=== PATIENT | female | born 1935 | race Caucasian/White ===

== ENCOUNTER 2021-08-20 08:10 | Inpatient (IN) | payer MEDICARE, OTHER ==
[~2021-08-20] VITALS: Ht 157.5 cm; Wt 88.5 kg
[~2021-08-20 08:10] MED LIST: ACET325 PO; ASCO1ER PO; ASPI81CH PO; ASPI81EC PO; CALCAVITDA PO; COMPLEX B-1000.4 MG PO; DIPH50 PO; FISH OIL 1200MG PO; FISH1000 PO; GLUC500 PO; IBUP800 PO; LEVSOD100 PO; LEVSOD50 PO; MECL12.5 PO; MECL25 PO; MULVITB PO; NAPR220 PO; ONDA4 PO; PYRI100 PO; RED YEAST RICE PO; RED YEAST RICE600 MG PO; TOCO400 PO; VITAMIN B PO
[2021-08-20 09:13] LABS: BASOPHILS ABSOLUTE AUTO 0.05 K/mm3 (0.00-0.23); BASOPHILS PERCENT AUTO 1 % (0-2); EOSINOPHILS ABSOLUTE AUTO 0.15 K/mm3 (0.00-0.68); EOSINOPHILS PERCENT AUTO 2 % (0-6); Hematocrit 43.1 % (33.0-51.0); Hemoglobin 14.1 g/dL (11.5-16.0); IMMATURE GRAN ABSOLUTE AUTO 0.01 K/mm3 (0.00-0.10); IMMATURE GRAN PERCENT AUTO 0 % (0-1); LYMPHOCYTES ABSOLUTE AUTO 2.48 K/mm3 (0.84-5.20); LYMPHOCYTES PERCENT AUTO 37 % (21-46); MONOCYTES ABSOLUTE AUTO 0.74 K/mm3 (0.16-1.47); MONOCYTES PERCENT AUTO 11 % (4-13); Mean Corpuscular HGB 31.3 pg (26.0-34.0); Mean Corpuscular HGB Conc 32.7 g/dL (31.5-36.5); Mean Corpuscular Volume 96 fL (80-100); Mean Platelet Volume 11.2 fL (9.1-12.4); NEUTROPHILS ABSOLUTE AUTO 3.21 K/mm3 (1.96-9.15); NEUTROPHILS PERCENT AUTO 48 % (41-73); Platelet Count 176 K/mm3 (150-400); RDW Coefficient Variation 12.2 % (11.7-14.2); RDW Standard Deviation 43.2 fL (35.1-46.3); White Blood Cell Count 6.64 K/mm3 (4.00-11.30)
[2021-08-20 09:32] LABS: Bun/Creatinine Ratio 17.2 (12.0-20.0); Calcium, Blood 8.7 mg/dL (8.5-10.1); Creatinine, Blood 0.82 mg/dL (0.40-1.00); Potassium, Blood 4.3 mmol/L (3.5-5.5)
[2021-08-20] MEDS ORDERED: LISI5 PO (09:34)
[2021-08-20] MEDS ORDERED: METO25ER PO (09:34)
[2021-08-20] MEDS ORDERED: TURMERIC ROOT5000 GM MC (09:34)
[2021-08-20] MEDS ORDERED: CENTRUM SILVER1 EAC2 PO (09:34)
[2021-08-20] MEDS ORDERED: Estrace Vagin42.5 GM PV (09:35)
[2021-08-20 10:05] LABS: Prothrombin Time Results 10.5 Sec (9.7-11.5)
--- NOTE | 2021-08-20 13:07 | NUR ---
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 PT IS A&OX4 AT THIS TIME. TELEMETRY, BP AND SP02 MONITORING IN PLACE. WILL CONTINUE TO MONITOR PT UNTIL SHE CAN BE TAKEN BACK TO SOL[employer] FI[employer] SERVICE TECHNICIAN FOR PACEMAKER PLACEMENT LATER TODAY. ORIENTED TO ROOM/CALL LIGHT, PT VERBALIZES UNDERSTANDING.
--- NOTE | 2021-08-20 18:15 | NUR ---
PT RETURNED FROM SCHEDULE MAKER APROX 1700 POST PACEMAKER PLACEMENT. SITE TO L CHEST WNL. ICE PACK APPLIED AND PACEMAKER PRECAUTIONS REVIEWED WITH PT, SHE VERBALIZES UNDERSTANDING. SLING IN PLACE. PT INSTRUCTED TO CALL RN FOR PAIN MEDICATION IF NEEDED. SEE DOCUMENTED VS. PT IS A&OX4 ON ARRIVAL BACK TO ROOM, FAMILY AT BEDSIDE. PT HAS NO NEEDS AT THIS TIME, OCCASIONALLY A PACED ON TELEMETRY. CALL LIGHT IN REACH. WILL CONTINUE TO MONITOR AND GIVE REPORT TO NOC SHIFT RN.
--- NOTE | 2021-08-21 02:40 | NUR ---
PPM site WNL, some minor swelling and bruising, VSS, pain managed with current regimine, will continue to monitor
[2021-08-21 03:39] LABS: Mean Corpuscular HGB 31.3 pg (26.0-34.0); Mean Corpuscular HGB Conc 32.5 g/dL (31.5-36.5); Mean Corpuscular Volume 96 fL (80-100); Mean Platelet Volume 11.4 fL (9.1-12.4); Platelet Count 150 K/mm3 (150-400); RDW Coefficient Variation 12.3 % (11.7-14.2); RDW Standard Deviation 43.7 fL (35.1-46.3); Red Blood Cell Count 4.15 M/mm3 (3.80-5.20)
[2021-08-21 03:58] LABS: Albumin, Blood 3.2 g/dL (3.4-5.0); Anion Gap 6 mmol/L (6-16); Blood Urea Nitrogen 16 mg/dL (8-24); Bun/Creatinine Ratio 19.3 (12.0-20.0); CO2, Blood 25 mmol/L (21-32); Calcium, Blood 8.5 mg/dL (8.5-10.1); Chloride, Blood 106 mmol/L (98-108); Creatinine, Blood 0.83 mg/dL (0.40-1.00); Glomerular Filtration Rate 69 (60-); Glucose, Blood 104 mg/dL (70-99); Magnesium, Blood 2.1 mg/dL (1.6-2.4); Phosphorus, Blood 4.2 mg/dL (2.5-4.9); Potassium, Blood 4.6 mmol/L (3.5-5.5); Sodium, Blood 137 mmol/L (136-145)
--- NOTE | 2021-08-21 10:42 | NUR ---
PT DISCHARGED HOME WITH FAMILY, ALL BELONGINGS SENT WITH PT. DISCHARGE EDUCATION REVIEWED WITH PT AND HER FAMILY AT BEDSIDE INCLUDING PACEMAKER PRECAUTIONS, FOLLOW UP APPOINTMENTS, DISCHARGE TEACHING AND MEDICATION LIST. PT VERBALIZES UNDERSTANDING AND DOES NOT HAVE ANY QUESTIONS AT THIS TIME. NO FURTHER DISCHARGE NEEDS IDENTIFIED.
== END 2021-08-21 10:38 | disposition home or self-care (01) | DRG 244 ==
LOC: ER 08:10 → MEDS 10:56 → PCU 11:34
PROVIDERS: Emergency Medicine; Internal Medicine Cardiovascular Disease; ADMIT Family Medicine
PROC: 0JH606Z Insertion of Pacemaker, Dual Chamber into Chest Subcutaneous Tissue and Fascia, Open Approach (ICD-10-PCS; principal; 2021-08-20)
PROC: 02HK3JZ Insertion of Pacemaker Lead into Right Ventricle, Percutaneous Approach (ICD-10-PCS; 2021-08-20)
PROC: 02H63JZ Insertion of Pacemaker Lead into Right Atrium, Percutaneous Approach (ICD-10-PCS; 2021-08-20)
DX: I44.1 Atrioventricular block, second degree (principal); I49.5 Sick sinus syndrome; I10 Essential (primary) hypertension; E78.5 Hyperlipidemia, unspecified; M85.80 Other specified disorders of bone density and structure, unspecified site; E03.9 Hypothyroidism, unspecified; M19.90 Unspecified osteoarthritis, unspecified site; Z96.641 Presence of right artificial hip joint; Z98.42 Cataract extraction status, left eye; Z90.89 Acquired absence of other organs; Z90.710 Acquired absence of both cervix and uterus; Z87.891 Personal history of nicotine dependence; Z88.0 Allergy status to penicillin; Z88.1 Allergy status to other antibiotic agents; Z88.2 Allergy status to sulfonamides; Z88.8 Allergy status to other drugs, medicaments and biological substances; Z79.82 Long term (current) use of aspirin; Z79.899 Other long term (current) drug therapy
CPT/HCPCS: 33208; 36415; 71045; 71046; 80048; 80069; 83735; 85025; 85027; 85610; 85730; 93005; 93010; 93306; 99152; 99153; 99285-25; A9270; C1785; C1898; J1644; J2250; J3010; J3370; J7030; J7040; J7060

== ENCOUNTER → 2023-12-06 | Outpatient (CLI) | payer MEDICARE, OTHER ==
[~2023-12-06] MED LIST changes: +CENTRUM SILVER1 EAC2 PO; +Estrace Vagin42.5 GM PV; +LISI5 PO; +METO25ER PO; +TURMERIC ROOT5000 GM MC
[2023-12-06 14:23] LABS: Source, Urine Clean Catch
[2023-12-06 14:24] LABS: Red Blood Cells, Urine 0-2 /hpf (0-2); Squamous Epithelial Cells Mod /hpf (Few); White Blood Cells, Urine 0-2 /hpf (0-5)
[2023-12-06 14:25] LABS: Bacteria Not Seen /hpf
== END | disposition home or self-care (01) ==
LOC: LAB 14:21 → LAB SHORT 14:21
PROVIDERS: Family Medicine
DX: R39.15 Urgency of urination (principal)
CPT/HCPCS: 81015; 87077; 87086; 87186

== ENCOUNTER → 2023-12-25 | Outpatient (CLI) | payer MEDICARE, OTHER | LOC: LAB 13:24 → LAB SHORT 13:24 | DX: L82.0 Inflamed seborrheic keratosis (principal); L57.0 Actinic keratosis | CPT/HCPCS: 88305 ==

== ENCOUNTER 2024-04-29 | Day surgery (SDC) | payer MEDICARE, OTHER ==
[2024-04-29] MEDS ORDERED: Lidocaine HCl 4% Cream 5 GM ONE (14:43)
[2024-04-29] MEDS ORDERED: Mupirocin Calcium Oint 1 GM ONE (15:32)
== END 2024-04-29 23:00 | disposition home or self-care (01) ==
LOC: WOUND
DX: T20.26XA Burn of second degree of forehead and cheek, initial encounter (principal); I10 Essential (primary) hypertension; Z87.891 Personal history of nicotine dependence; Z95.0 Presence of cardiac pacemaker; Z88.0 Allergy status to penicillin
CPT/HCPCS: A9270; G0463

== ENCOUNTER 2024-05-05 06:39 | Day surgery (SDC) | payer MEDICARE, OTHER ==
[2024-05-05] MEDS ORDERED: Bacitracin Zinc Oint 1GRAM UD Packet ONE (15:00)
== END 2024-05-05 23:00 | disposition home or self-care (01) ==
LOC: WOUND 06:39
DX: T20.20XD Burn of second degree of head, face, and neck, unspecified site, subsequent encounter (principal); I10 Essential (primary) hypertension; Z95.0 Presence of cardiac pacemaker
CPT/HCPCS: G0463

== ENCOUNTER 2024-05-12 01:24 | Day surgery (SDC) | payer MEDICARE, OTHER | END 2024-05-12 23:00 | disposition home or self-care (01) | LOC: WOUND 01:24 | DX: T20.29XD Burn of second degree of multiple sites of head, face, and neck, subsequent encounter (principal); I10 Essential (primary) hypertension; Z95.0 Presence of cardiac pacemaker | CPT/HCPCS: G0463 ==

== ENCOUNTER 2024-12-29 10:08 | Inpatient (IN) | payer MEDICARE, OTHER ==
[~2024-12-29] VITALS: Ht 154.9 cm; Wt 90.3 kg
[~2024-12-29 10:08] MED LIST changes: -ACET325 PO; +ACET500 PO; +BENADRYL25 MG PO; +CALCIUM 500 MG1 EAC2 PO; -DIPH50 PO; -Estrace Vagin42.5 GM PV; +Estrace Vagin42.5 GM VAG; -TURMERIC ROOT5000 GM MC; +TURMERIC500 M2 PO; -VITAMIN B PO; +VITAMIN B-122000 MC1 PO
[2024-12-29 10:58] LABS: BASOPHILS ABSOLUTE AUTO 0.07 K/mm3 (0.00-0.23); BASOPHILS PERCENT AUTO 1 % (0-2); EOSINOPHILS ABSOLUTE AUTO 0.27 K/mm3 (0.00-0.68); EOSINOPHILS PERCENT AUTO 3 % (0-6); Hematocrit 44.7 % (33.0-51.0); Hemoglobin 15.0 g/dL (11.5-16.0); IMMATURE GRAN ABSOLUTE AUTO 0.02 K/mm3 (0.00-0.10); IMMATURE GRAN PERCENT AUTO 0 % (0-1); LYMPHOCYTES ABSOLUTE AUTO 2.48 K/mm3 (0.84-5.20); LYMPHOCYTES PERCENT AUTO 27 % (21-46); MONOCYTES ABSOLUTE AUTO 0.84 K/mm3 (0.16-1.47); MONOCYTES PERCENT AUTO 9 % (4-13); Mean Corpuscular HGB Conc 33.6 g/dL (31.5-36.5); Mean Corpuscular Volume 94 fL (80-100); NEUTROPHILS ABSOLUTE AUTO 5.49 K/mm3 (1.96-9.15); NEUTROPHILS PERCENT AUTO 60 % (41-73); NRBC ABSOLUTE 0.00 K/mm3 (0.00-0.02); NRBC Auto 0.0 /100 WBC (0.0-0.2); Platelet Count 241 K/mm3 (150-400); RDW Coefficient Variation 13.0 % (11.7-14.2); RDW Standard Deviation 44.9 fL (35.1-46.3)
[2024-12-29 11:15] LABS: Prothrombin Time Results 11.8 Sec (9.7-11.5)
[2024-12-29 11:25] LABS: Alanine Aminotransfer (ALT/SGP 20.0 U/L (12-78); Albumin, Blood 3.4 g/dL (3.4-5.0); Albumin/Globulin Ratio 0.8 (0.8-1.8); Anion Gap 8.0 mmol/L (3-11); Aspartate Aminotrans (AST/SGOT 23.0 U/L (12-37); Bilirubin, Total 0.5 mg/dL (0.1-1.0); Blood Urea Nitrogen 17.0 mg/dL (8-24); CO2, Blood 27.0 mmol/L (21-32); Calcium, Blood 9.2 mg/dL (8.5-10.1); Chloride, Blood 104.0 mmol/L (98-108); Creatinine, Blood 0.8 mg/dL (0.40-1.00); Globulin, Blood 4.2 g/dL (2.2-4.0); Glucose, Blood 122.0 mg/dL (70-99); Magnesium, Blood 2.0 mg/dL (1.6-2.4); Potassium, Blood 3.9 mmol/L (3.5-5.5); Sodium, Blood 135.0 mmol/L (136-145); Total Protein, Blood 7.6 g/dL (6.4-8.2)
[2024-12-29] MEDS ORDERED: FLU VACC TS2025(65UP)/MF59C/PF 45 MCG/0.5 ML SYRINGE IM SCH (13:40)
[2024-12-29 16:29] VITALS: BP 147/88
[2024-12-29 17:05] LABS: Automated BF WBC Count 1.062 K/mm3 (0-999)
[2024-12-29] MEDS ORDERED: Amlodipine Bes2.5 MG PO (17:08)
[2024-12-29] MEDS ORDERED: FURO20 PO (17:11)
[2024-12-29] MEDS ORDERED: POTA10T PO (17:12)
[2024-12-29 17:19] LABS: Albumin, Body Fluid 3.3 g/dL; Glucose, Body Fluid 111 mg/dL; Lactate Dehydrogenase, Body Fl 192 U/L
[2024-12-29 17:22] LABS: RBC Count, Body Fluid 695 /mm3 (0-0)
[2024-12-29 17:23] LABS: Color, Body Fluid Yellow (None-Yellow)
[2024-12-29 17:46] LABS: Anti-Xa UFH, PHA Monitoring <0.10 IU/mL
--- NOTE | 2024-12-29 17:47 | NUR ---
PT ADMITTED TO UNIT AFTER THORACENTESIS COMPLETED. PT ABLE TO STAND AND AMBULATE WITH SBA FROM GURNEY TO BED. PT DENIES PAIN, REPORTS BREATHING BETTER POST THORACENTESIS. REMAINS ON 2 L/MIN VIA NC AND SATING 95%. ADMISSION COMPLETED INCLUDING MED REC. TELE MONITOR PLACED ON PT - SR @ 88, PACEMAKER. PT ORIENTED TO ROOM AND CALL SYSTEM AND NEED TO CALL PRIOR TO GETTING OOB. PT HAS CANE x2 AND BILATERAL HEARING AIDS. PROVIDER NOTIFIED OF FLUID REMOVED DURING THORACENTESIS. PT CURRENTLY RESTING IN BED WITH BED IN LOWEST POSITION AND CALL LIGHT WITHIN REACH. PT APPEARS COMFORTABLE AND IN NO DISTRESS. PT DENIES ANY NEEDS AT THIS TIME.
[2024-12-29] MEDS ORDERED: Heparin Sodium,Porcine/0.5 NS 500 ML IV SCH (17:50)
[2024-12-29] MEDS ORDERED: Heparin Sodium 5000 Units/ML 1ML MDV IV ONE (17:50)
[2024-12-29 18:09] LABS: Lymphocytes, Fluid 69.0 % (0.0-18.0); Monocytes/Mononuclear, Fluid 23.0 % (0.0-50.0); Neutrophils, Fluid 4.0 % (0.0-25.0); Other Cells, Fluid 2.0 % (0.0-0.0); Total Cell Count, Body Fluid 100
[2024-12-29 19:35] VITALS: BP 121/57
[2024-12-30 01:13] LABS: BASOPHILS ABSOLUTE AUTO 0.04 K/mm3 (0.00-0.23); BASOPHILS PERCENT AUTO 0 % (0-2); EOSINOPHILS ABSOLUTE AUTO 0.15 K/mm3 (0.00-0.68); EOSINOPHILS PERCENT AUTO 1 % (0-6); Hematocrit 41.9 % (33.0-51.0); Hemoglobin 14.1 g/dL (11.5-16.0); IMMATURE GRAN ABSOLUTE AUTO 0.04 K/mm3 (0.00-0.10); IMMATURE GRAN PERCENT AUTO 0 % (0-1); LYMPHOCYTES ABSOLUTE AUTO 1.67 K/mm3 (0.84-5.20); LYMPHOCYTES PERCENT AUTO 15 % (21-46); MONOCYTES ABSOLUTE AUTO 0.90 K/mm3 (0.16-1.47); MONOCYTES PERCENT AUTO 8 % (4-13); Mean Corpuscular HGB Conc 33.7 g/dL (31.5-36.5); Mean Corpuscular Volume 94 fL (80-100); NEUTROPHILS ABSOLUTE AUTO 8.29 K/mm3 (1.96-9.15); NEUTROPHILS PERCENT AUTO 75 % (41-73); NRBC ABSOLUTE 0.00 K/mm3 (0.00-0.02); NRBC Auto 0.0 /100 WBC (0.0-0.2); Platelet Count 219 K/mm3 (150-400); RDW Coefficient Variation 12.8 % (11.7-14.2); RDW Standard Deviation 44.3 fL (35.1-46.3)
[2024-12-30 01:29] LABS: Anion Gap 7.0 mmol/L (3-11); Blood Urea Nitrogen 17.0 mg/dL (8-24); CO2, Blood 27.0 mmol/L (21-32); Calcium, Blood 8.9 mg/dL (8.5-10.1); Chloride, Blood 105.0 mmol/L (98-108); Creatinine, Blood 0.72 mg/dL (0.40-1.00); Glucose, Blood 148.0 mg/dL (70-99); Potassium, Blood 4.1 mmol/L (3.5-5.5); Sodium, Blood 135.0 mmol/L (136-145)
[2024-12-30] MEDS ORDERED: Dose Adjust by Pharmacy XX STA ×3 (01:35→15:33)
--- NOTE | 2024-12-30 01:45 | NUR ---
HEPARIN DRIP HELD X 1 HR AND TO START BACK AT 15 U/KG IN 1 HR, INSTRUCTED BY PHARMACY.
[2024-12-30 04:47] VITALS: BP 138/63
[2024-12-30 07:52] VITALS: BP 130/74
[2024-12-30] MEDS ORDERED: TYLENOL ER PO (11:47)
[2024-12-30] MEDS ORDERED: ASCO500 PO (11:50)
[2024-12-30 15:49] VITALS: BP 121/53
--- NOTE | 2024-12-30 16:36 | NUR ---
SHIFT SUMMARY NO ACUTE CHANGES. A/Ox4, ABLE TO MAKE NEEDS KNOWN. ON RA AND SATING ABOVE 92%. PT DENIES PAIN TO THORACENTESIS SITE AND REPORTS DEEP BREATHS ARE BECOMING LESS PAINFUL. MEDICATED PER EMAR FOR PAIN TO R SHOULDER. REMAINS ON HEPARIN AT 19.5 ML/HR PER PHARMACY MANAGEMENT. PT CURRENTLY SITTING UP IN CHAIR, WITH CALL LIGHT IN REACH. PT APPEARS COMFORTABLE AND DENIES ANY NEEDS AT THIS TIME. ONCOLOGY CONSULT CALLED IN BY THIS RN.
[2024-12-30 19:39] VITALS: BP 131/43
[2024-12-30 23:29] VITALS: BP 142/75
[2024-12-31 02:55] VITALS: BP 137/63
--- NOTE | 2024-12-31 03:19 | NUR ---
TAX COMPLIANCE AGENT SUMMARY VSS. ALERT AND ORIENTED. RESPS EVEN, LUNG SOUNDS DIMINISHED ON LEFT SIDE PER AUSCULTATION BUT SATS IN THE 90'S. TELE - PACED IN THE 90'S. HEPARIN DRIP CONTINUES AT 15 U/KG PER HR. HAS BEEN RESTING QUIETLY WITH FEW INTERRUPTIONS. UP TO BATHROOM WITH ASSIST USING 2 CANES TO VOID. THEN UP TO BEDSIDE RECLINER. AFFECT CHEERFUL. CURRENTLY RESTING QUIETLY IN RECLINER. CALL LIGHT IN REACH. FEET UP. WILL CONTINUE TO MONITOR.
[2024-12-31 05:59] LABS: BASOPHILS ABSOLUTE AUTO 0.03 K/mm3 (0.00-0.23); BASOPHILS PERCENT AUTO 0 % (0-2); EOSINOPHILS ABSOLUTE AUTO 0.46 K/mm3 (0.00-0.68); EOSINOPHILS PERCENT AUTO 5 % (0-6); Hematocrit 42.5 % (33.0-51.0); Hemoglobin 14.2 g/dL (11.5-16.0); IMMATURE GRAN ABSOLUTE AUTO 0.03 K/mm3 (0.00-0.10); IMMATURE GRAN PERCENT AUTO 0 % (0-1); LYMPHOCYTES ABSOLUTE AUTO 1.75 K/mm3 (0.84-5.20); LYMPHOCYTES PERCENT AUTO 20 % (21-46); MONOCYTES ABSOLUTE AUTO 0.91 K/mm3 (0.16-1.47); MONOCYTES PERCENT AUTO 11 % (4-13); Mean Corpuscular HGB Conc 33.4 g/dL (31.5-36.5); Mean Corpuscular Volume 95 fL (80-100); NEUTROPHILS ABSOLUTE AUTO 5.52 K/mm3 (1.96-9.15); NEUTROPHILS PERCENT AUTO 64 % (41-73); NRBC ABSOLUTE 0.00 K/mm3 (0.00-0.02); NRBC Auto 0.0 /100 WBC (0.0-0.2); Platelet Count 240 K/mm3 (150-400); RDW Coefficient Variation 13.0 % (11.7-14.2); RDW Standard Deviation 45.9 fL (35.1-46.3)
[2024-12-31 06:22] LABS: Anion Gap 11.0 mmol/L (3-11); Blood Urea Nitrogen 13.0 mg/dL (8-24); CO2, Blood 24.0 mmol/L (21-32); Calcium, Blood 8.9 mg/dL (8.5-10.1); Chloride, Blood 103.0 mmol/L (98-108); Creatinine, Blood 0.71 mg/dL (0.40-1.00); Glucose, Blood 108.0 mg/dL (70-99); Potassium, Blood 3.6 mmol/L (3.5-5.5); Sodium, Blood 134.0 mmol/L (136-145)
[2024-12-31] MEDS ORDERED: Dose Adjust by Pharmacy XX STA (06:23)
[2024-12-31 08:13] VITALS: BP 147/64
--- NOTE | 2024-12-31 09:32 | NUR ---
Dr. Griffin in to see patient this morning. Verbal order to hold IV Heparin given and completed at 0914. Notified pharmacy of Dr. stiles at 0916.
[2024-12-31 11:25] VITALS: BP 139/69
[2024-12-31 15:47] VITALS: BP 133/72
--- NOTE | 2024-12-31 15:57 | NUR ---
PROVIDER UPDATED ME THAT PATIENT HAS DECIDED ON GOING HOME ON HOSPICE. UPDATED CARE COORDINATION WHO WAS ABLE TO VERIFY AND MAKE ARRANGMENTS
--- NOTE | 2024-12-31 17:13 | NUR ---
1302: Call to Dr. Garcia, pulmonology, regarding patient wishes to go home on hospice and have pleurex drain placement. Cancelled thoracentisis today. 1403: Call to Dr. Dawson, General Surgery, with consult request from Dr. Quinones for Pleurx drain placement. He stated that Dr. Sweet will see patient tomorrow morning. 1413: Call to Pharmacy and heparin drip restarted, per Dr. Quinones, at 1417.
--- NOTE | 2024-12-31 17:22 | NUR ---
End of shift summary: Patient is alert and oriented x4; pleasant and cooperative with care. Patient with no acute changes this shift. Denied CP or pressure, N/V/D today, but did have right shoulder pain and SOB with exertion; utilizing oxygen PRN and Acetameniphen. All medications administered per EMAR. Patient to be NPO after midnight for surgery tomorrow. Patient utilizing call light appropriately; call light within reach and chair locked for safety. Will continue to monitor until next shift nurse arrives and report is given.
[2024-12-31 19:44] VITALS: BP 134/74
[2024-12-31 23:49] VITALS: BP 122/69
[2025-01-01] VITALS (16 sets, daily range): BP systolic 108–174; BP diastolic 60–107
--- NOTE | 2025-01-01 03:01 | NUR ---
SHIFT SUMMARY: AOX4. PT AMBULATES WITH SBA AND HER 2 CANES. VSS AND ON RA. DENIES PAIN OR SOB. LUNGS ARE DIMINISHED THROUGHOUT. CALL LIGHT IS WITHIN REACH. PT IS ASLEEP IN CHAIR. PT IS NPO, PENDING PLEURX PLACEMENT.
[2025-01-01] MEDS ORDERED: Bupivacaine 0.5% HCl 5 MG/ML 30MLVIAL ONE (13:49)
[2025-01-01] MEDS ORDERED: CeFAZolin Sodium 2,000 MG in NS 100 ML IV SCH (14:00)
[2025-01-01] MEDS ORDERED: FentaNYL Citrate 50 MCG/ML 2 ML Injection ONE ×2 (14:06→15:04)
--- NOTE | 2025-01-01 14:11 | NUR ---
PT TRASNPORTED TO [facility]. AGREES WITH PLANNED SURGERY. History, Chart, Medications and Allergies reviewed before start of procedure. Patient confirms NPO status and agrees with scheduled surgery. HEPARIN DRIP STOPPED AT 1000, DR. KITCHEN AWARE AND STATES OK TO PROCEED WITH SURGERY. HEARING AIDS LEFT IN EARS.
--- NOTE | 2025-01-01 14:30 | NUR ---
01/01/25 1429 Judith Webster AT 1425 DR. KITCHEN INJECTED 20ML 2% LIDOCAINE WITH 0.5% MARCAINE 1:1 RATIO
[2025-01-01] MEDS ORDERED: Ondansetron HCl 2 MG / ML 2ML Vial IV PRN (14:35)
[2025-01-01] MEDS ORDERED: FentaNYL Citrate 50 MCG/ML 2 ML Injection IV PRN ×3 (14:35)
--- NOTE | 2025-01-01 18:25 | NUR ---
PATIENT RESTING POST PROCEDURE. WISHES TO STAY ONE MORE NIGHT BEFORE DISCHARE HOME TOMORROW. PATIENT DENIES PAIN AT THIS TIME. INDEPENDENT IN ROOM.
[2025-01-02] MEDS ORDERED: Clarify Drug Order XX ONE (03:35)
[2025-01-02 03:47] VITALS: BP 137/68
--- NOTE | 2025-01-02 04:13 | NUR ---
NO ACUTE CHANGES DURING SHIFT. PATIENT ALERT AND ORIENTED X4, ABLE TO MAKE NEEDS KNOWN. PATIENT IS A 1 ASSIST WITH HER CANE TO THE BATHROOM. PATIENT AMBULATED IN ROOM. PATIENT HEPARIN DRIP WAS RESTARTED PER MD ORDER. PATIENT C/O PAIN WITHOUT RELIEF FROM TYLENOL. ORDER FOR OXYCODONE WAS OBTAINED. PATIENT ON TELE-RUNNING NSR. WHEELS ARE LOCKED AND BED IN LOW POSITION. CALL LIGHT WITHIN REACH.
[2025-01-02 05:01] LABS: Hematocrit 43.9 % (33.0-51.0); Hemoglobin 14.5 g/dL (11.5-16.0); Platelet Count 231 K/mm3 (150-400)
[2025-01-02 06:11] VITALS: BP 113/66
--- NOTE | 2025-01-02 06:38 | NUR ---
0335- PER PHARMACY ORDER-CONTINUED HEPARIN AT SAME RATE- 15 U/KG/HR OR 19.5 ML
[2025-01-02 07:19] VITALS: BP 128/71
[2025-01-02] MEDS ORDERED: Dose Adjust by Pharmacy XX STA (09:20)
[2025-01-02] MEDS ORDERED: MASOPHEN325 M3 PO (11:03)
[2025-01-02] MEDS ORDERED: ELIQUIS5 M2 (11:05)
[2025-01-02] MEDS ORDERED: ELIQUIS5 M2 PO (11:06)
[2025-01-02 11:12] VITALS: BP 130/63
== END 2025-01-02 13:29 | disposition hospice, home (50) | DRG 180 ==
LOC: ER 10:08 → MEDS 13:28 → ENPENDDIS 01-02 11:08 → MEDS 01-02 13:29
PROVIDERS: Emergency Medicine; Surgery; ADMIT Family Medicine
PROC: 0W9B3ZZ Drainage of Left Pleural Cavity, Percutaneous Approach (ICD-10-PCS; principal; 2024-12-29)
PROC: 3E02340 Introduction of Influenza Vaccine into Muscle, Percutaneous Approach (ICD-10-PCS; 2024-12-29)
PROC: 0W9B30Z Drainage of Left Pleural Cavity with Drainage Device, Percutaneous Approach (ICD-10-PCS; 2025-01-01)
PROC: 3E03329 Introduction of Other Anti-infective into Peripheral Vein, Percutaneous Approach (ICD-10-PCS; 2025-01-01)
DX: C34.12 Malignant neoplasm of upper lobe, left bronchus or lung (principal); I26.99 Other pulmonary embolism without acute cor pulmonale; J96.01 Acute respiratory failure with hypoxia; E87.1 Hypo-osmolality and hyponatremia; J91.0 Malignant pleural effusion; C78.7 Secondary malignant neoplasm of liver and intrahepatic bile duct; Z66 Do not resuscitate; E03.9 Hypothyroidism, unspecified; M19.90 Unspecified osteoarthritis, unspecified site; M85.80 Other specified disorders of bone density and structure, unspecified site; Z96.641 Presence of right artificial hip joint; Z90.710 Acquired absence of both cervix and uterus; Z90.89 Acquired absence of other organs; Z90.49 Acquired absence of other specified parts of digestive tract; Z98.890 Other specified postprocedural states; Z87.891 Personal history of nicotine dependence; Z88.2 Allergy status to sulfonamides; Z88.8 Allergy status to other drugs, medicaments and biological substances; Z88.1 Allergy status to other antibiotic agents; Z79.899 Other long term (current) drug therapy; Z88.0 Allergy status to penicillin; Z79.890 Hormone replacement therapy; Z98.42 Cataract extraction status, left eye; Z95.0 Presence of cardiac pacemaker
CPT/HCPCS: 32555; 36415; 71045; 71046; 71260; 80048; 80053; 82042; 82945; 83615; 83735; 83880; 84145; 84155; 84157; 84484; 85014; 85018; 85025; 85049; 85520; 85610; 85730; 87070; 87075; 87205; 88108; 88305; 88341; 88342; 89051; 93005; 93010; 93306; 93970; 99285-25; A9270; C1729; J0690; J1644; J2704; J3010; J7120; Q9967

== ENCOUNTER → 2025-01-20 | Outpatient (CLI) | payer MEDICARE, OTHER ==
[~2025-01-20] MED LIST changes: +ASCO500 PO; +Amlodipine Bes2.5 MG PO; +ELIQUIS5 M2; +ELIQUIS5 M2 PO; +FURO20 PO; +MASOPHEN325 M3 PO; +POTA10T PO; +TYLENOL ER PO
== END | disposition home or self-care (01) ==
LOC: LAB SHORT 08:32 → LAB 08:32
DX: C44.529 Squamous cell carcinoma of skin of other part of trunk (principal)
CPT/HCPCS: 88305